=== PATIENT | female | born 1935 | race Caucasian/White ===

== ENCOUNTER 2018-05-19 13:34 | Emergency (ER) | payer MEDICARE, MEDICAID ==
[2018-05-19 14:32] LABS: BASO % 0.3 % (0-6); EOS % 4.5 % (0-6); GRAN % 68.6 % (47-80); HEMATOCRIT 35.8 % (35.0-47.0); HEMOGLOBIN 10.8 gm/dl (11.6-16.0); LYMPH % 15.9 % (16-45); MEAN CELL VOLUME 95.7 fl (81-97); MEAN CORPUSCULAR HGB CONC 30.2 g/dl (32-36); MONO % 10.7 % (0-9); PLATELET COUNT 176 K/uL (130-400); RED BLOOD COUNT 3.74 M/uL (3.80-5.40); RED CELL DISTRIBUTION WIDTH 15.3 % (11.5-14.5); WHITE BLOOD COUNT W/O DIFF 6.8 K/uL (4.2-12.2)
[2018-05-19 14:33] LABS: MEAN CORPUSCULAR HEMOGLOBIN 28.8 pg (27-33)
--- NOTE | 2018-05-19 14:33 | Emergency Department Record ---
History of Present Illness - General Chief complaint: Rash Stated complaint: RASH Time Seen by Provider: 05/19/18 14:07 Source: Patient, Family Mode of Arrival: Ambulatory Limitations: No limitations - History of Present Illness Initial comments: The patient is here due to a chronic rash. She has had a rash to her hands and arms for months and now it seems to have spread to the anterior neck and face mainly around her mouth. It is mildly itchy per the patient. The patient does live in a [place] [facility] due to being developmentally delayed. The caregiver present denies any new medicines, any recent illnesses or injuries. The patient is in her normal state of health with no complaints other than the rash. MD complaint: Rash Onset/Timin -: Month(s) - Related Data Home Medications Medication Instructions Recorded Confirmed Last Taken Aspirin Enteric-Coated [Ecotrin 81 mg PO DAILY 05/19/18 05/19/18 05/19/18 07:00 (EC)] Fluoxetine HCl 20 mg PO DAILY 05/19/18 05/19/18 05/19/18 07:00 Folic Acid 0.4 mg PO DAILY 05/19/18 05/19/18 05/19/18 07:00 Furosemide [Lasix] 40 mg PO DAILY 05/19/18 05/19/18 05/19/18 07:00 Loratadine 10 mg PO DAILY 05/19/18 05/19/18 05/19/18 07:00 Lubiprostone [Amitiza] 24 mcg PO DAILY 05/19/18 05/19/18 05/19/18 07:00 Metoprolol Tartrate 12.5 mg PO DAILY 05/19/18 05/19/18 05/19/18 07:00 Omeprazole 20 mg PO DAILY 05/19/18 05/19/18 05/19/18 07:00 Oxybutynin Chloride [Oxybutynin 5 mg PO BID 05/19/18 05/19/18 05/19/18 07:00 Chloride ER] Pioglitazone HCl [Actos] 15 mg PO DAILY 05/19/18 05/19/18 05/19/18 07:00 Polyethylene Glycol 3350 [Miralax] 17 gm PO DAILY 05/19/18 05/19/18 05/19/18 07: 00 Potassium Chloride 20 meq PO DAILY 05/19/18 05/19/18 05/19/18 07:00 Pravastatin Sodium [Pravachol] 10 mg PO DAILY 05/19/18 05/19/18 05/19/18 07:00 Quetiapine Fumarate [Quetiapine 50 mg PO DAILY 05/19/18 05/19/18 05/19/18 07:00 Fumarate ER] Quetiapine Fumarate [Seroquel] 25 mg PO ASDIR 05/19/18 05/19/18 Unknown Sennosides/Docusate Sodium 1 each PO DAILY 05/19/18 05/19/18 05/19/18 07:00 [Senokot-S Tablet] Previous Rx's Medication Instructions Recorded Triamcinolone Acetonide 80 gm TP DAILY #1 cream..g. 05/19/18 Allergies Allergy/AdvReac Type Severity Reaction Status Date / Time No Known Drug Allergies Allergy Verified 05/19/18 14:12 Travel Screening - Travel/Exposure Within Last 30 Days Have you traveled within the last 30 days?: No - Travel/Exposure Within Last Year Have you traveled outside the [place] in the last year?: No - Additonal Travel Details Have you been exposed to anyone with a communicable illness?: No - Travel Symptoms Symptom Screening: None Review of Systems Constitutional: Denies: Chills, Fever Eyes: Denies: Eye discharge ENT: Denies: Congestion Respiratory: Denies: Cough, Dyspnea Cardiovascular: Denies: Chest pain Past Medical History - SOCIAL HISTORY Smoking Status: Never smoker Alcohol Use: None Drug Use: None - RESPIRATORY Hx Respiratory Disorders: No Comment:: chronic bilateral otitis - CARDIOVASCULAR Hx Cardio Disorders: Yes Hx CHF: Yes - NEURO Hx Neuro Disorders: No - GI Hx GI Disorders: Yes Hx Reflux: Yes Comment:: chronic cysts with urinary incontinence - Hx Genitourinary Disorders: No - ENDOCRINE Hx Endocrine Disorders: Yes Hx Diabetes: Yes - PSYCH Hx Psych Problems: Yes Hx Depression: Yes Comment:: bipolar, developmental delay - mild - HEMATOLOGY/ONCOLOGY Hx Hematology/Oncology Disorders: No Family Medical History Any Significant Family History?: No Family Hx Comment (NOT TO BE USED IN PLACE OF ITEMS BELOW): unknown Physical Exam - General General Appearance: Alert, Oriented x3, Cooperative, No acute distress - Head Head exam: Atraumatic, Normocephalic, Normal inspection - Eye Eye exam: Normal appearance, PERRL - ENT Throat exam: Normal inspection. negative: Tonsillar erythema, Tonsillar exudate - Neck Neck exam: Normal inspection, Full ROM. negative: Tenderness - Respiratory Respiratory exam: Normal lung sounds bilaterally. negative: Respiratory distress - Cardiovascular Cardiovascular Exam: Regular rate, Normal rhythm, Normal heart sounds - GI/Abdominal GI/Abdominal exam: Soft, Normal bowel sounds. negative: Tenderness - Extremities Extremities exam: Full ROM, Normal capillary refill. negative: Tenderness - Neurological Neurological exam: Alert. negative: Motor sensory deficit - Skin Skin exam: Erythema (There is a diffuse blanching erythroderma to the dorsal hands and distal forearms and around the mouth and the anterior neck. It is not tender or warm and there are no signs of any infection.), Rash Course Vital Signs 05/19/18 13:56 Temperature 97.9 F Pulse Rate 72 Respiratory 16 Rate Blood Pressure 126/63 Pulse Ox 99 - Reevaluation(s) Reevaluation #1: The patient is doing well at this time with no changes or complaints. I did discuss with the caregiver the need for the patient to see her PCP and possibly obtain a referral to a Weight Training Instructor. 05/19/18 15:06 Medical Decision Making - Lab Data Result diagrams: 05/19/18 14:25 05/19/18 14:25 Disposition Disposition: Discharge Clinical Impression: Dermatitis Disposition: Home, Self-Care Condition: (2) Stable Instructions: Acute Rash (ED) Additional Instructions: Please continue your regular medicines and see use the Steroid cream as directed. Please see your family doctor next week for recheck and obtain a referral to a Weight Training Instructor if needed. Prescriptions: Triamcinolone Acetonide 80 gm TP DAILY #1 cream..g. Forms: Patient Portal Access Time of Disposition: 15:10 Quality - Quality Measures Quality Measures: N/A - Blood Pressure Screening View Details: Yes Does Patient Have Any of the Following: No Blood Pressure Classification: Pre-Hypertensive BP Reading Systolic Measurement: 126 Diastolic Measurement: 63 Screening for High Blood Pressure: < Pre-Hypertensive BP, F/U Documented > [ G8950] Pre-Hypertensive Follow-up Interventions: Referral to alternative/primary care provider.
[2018-05-19 14:48] LABS: BILIRUBIN,TOTAL 0.2 mg/dL (0.2-1.0); CREATININE 1.4 mg/dL (0.5-0.9)
[2018-05-19 14:49] LABS: TOTAL PROTEIN 7.1 g/dL (6.6-8.7)
[2018-05-19 14:53] LABS: ALB/GLOB RATIO 1.2 (1.1-1.8); ALBUMIN 3.8 g/dL (4.0-5.0); C-REACTIVE PROTEIN 0.17 mg/dL (<0.5)
== END 2018-05-19 15:26 | disposition home or self-care (01) ==
LOC: ER 13:34
DX: L30.9 Dermatitis, unspecified (principal); I50.9 Heart failure, unspecified; E11.9 Type 2 diabetes mellitus without complications; Z79.84 Long term (current) use of oral hypoglycemic drugs
CPT/HCPCS: 80053; 85025; 86140; 99283

== ENCOUNTER 2018-09-23 15:36 | Emergency (ER) | payer MEDICARE, MEDICAID ==
--- NOTE | 2018-09-23 16:19 | Emergency Department Record ---
History of Present Illness - General Chief Complaint: Laceration(s) Stated Complaint: LT CALF LAC Time Seen by Provider: 09/23/18 16:00 Source: Patient, RN notes reviewed Mode of Arrival: Ambulatory - History of Present Illness Initial Commments: patient cut her leg using an electric razor and bleeding would not stop with pressure. pateint lives in [facility] Onset/Timin -: Days(s) Place: Home Associated Symptoms: None - Related Data Previous Rx's Medication Instructions Recorded Triamcinolone Acetonide 80 gm TP DAILY #1 cream..g. 05/19/18 Allergies Allergy/AdvReac Type Severity Reaction Status Date / Time No Known Drug Allergies Allergy Verified 05/19/18 14:12 Travel Screening - Travel/Exposure Within Last 30 Days Have you traveled within the last 30 days?: No Review of Systems Reviewed: No additional complaints except as noted below Constitutional: Reports: As per HPI. Denies: Chills, Fever, Malaise, Night sweats, Weakness, Weight change Eyes: Reports: As per HPI. Denies: Eye discharge, Eye pain, Photophobia, Vision change ENT: Reports: As per HPI. Denies: Congestion, Dental pain, Ear pain, Epistaxis , Hearing loss, Throat pain Respiratory: Reports: As per HPI. Denies: Cough, Dyspnea, Hemoptysis, Stridor, Wheezes Cardiovascular: Reports: As per HPI. Denies: Arrhythmia, Chest pain, Dyspnea on exertion, Edema, Murmurs, Orthopnea, Palpitations, Paroxysmal nocturnal dyspnea, Rheumatic Fever, Syncope Endocrine: Reports: As per HPI. Denies: Fatigue, Heat or cold intolerance, Polydipsia, Polyuria Gastrointestinal: Reports: As per HPI. Denies: Abdominal pain, Constipation, Diarrhea, Hematemesis, Hematochezia, Melena, Nausea, Vomiting Genitourinary: Reports: As per HPI. Denies: Abnormal menses, Discharge, Dyspareunia, Dysuria, Frequency, Hematuria, Incontinence, Retention, Urgency Musculoskeletal: Reports: As per HPI. Denies: Arthralgia, Back pain, Gout, Joint swelling, Myalgia, Neck pain Skin: Reports: As per HPI. Denies: Bruising, Change in color, Change in hair/ nails, Lesions, Pruritus, Rash Neurological: Reports: As per HPI. Denies: Abnormal gait, Confusion, Headache, Numbness, Paresthesias, Seizure, Tingling, Tremors, Vertigo, Weakness Psychiatric: Reports: As per HPI. Denies: Anxiety, Auditory hallucinations, Depression, Homicidal thoughts, Suicidal thoughts, Visual hallucinations Hematological/Lymphatic: Reports: As per HPI. Denies: Anemia, Blood Clots, Easy bleeding, Easy bruising, Swollen glands Past Medical History - SOCIAL HISTORY Smoking Status: Never smoker - RESPIRATORY Hx Respiratory Disorders: No Comment:: chronic bilateral otitis - CARDIOVASCULAR Hx Cardio Disorders: Yes Hx CHF: Yes - NEURO Hx Neuro Disorders: No - GI Hx GI Disorders: Yes Hx Reflux: Yes Comment:: chronic cysts with urinary incontinence - Hx Genitourinary Disorders: No - ENDOCRINE Hx Endocrine Disorders: Yes Hx Diabetes: Yes - PSYCH Hx Psych Problems: Yes Hx Depression: Yes Comment:: bipolar, developmental delay - mild - HEMATOLOGY/ONCOLOGY Hx Hematology/Oncology Disorders: No Family Medical History Any Significant Family History?: No Family Hx Comment (NOT TO BE USED IN PLACE OF ITEMS BELOW): unknown Physical Exam - General General Appearance: Alert, Oriented x3, Cooperative, No acute distress - Head Head exam: Normal inspection - Eye Eye exam: Normal appearance, PERRL Pupils: Normal accommodation - ENT ENT exam: Normal exam, Mucous membranes moist, Normal external ear exam, Normal orophraynx, TM's normal bilaterally Ear exam: Normal external inspection. negative: External canal tenderness Nasal Exam: Normal inspection. negative: Discharge, Sinus tenderness Mouth exam: Normal external inspection, Tongue normal Teeth exam: Normal inspection. negative: Dental caries Throat exam: Normal inspection. negative: Tonsillar erythema, Tonsillar exudate - Neck Neck exam: Normal inspection, Full ROM. negative: Tenderness - Respiratory Respiratory exam: Normal lung sounds bilaterally. negative: Respiratory distress - Cardiovascular Cardiovascular Exam: Regular rate, Normal rhythm, Normal heart sounds - GI/Abdominal GI/Abdominal exam: Soft, Normal bowel sounds. negative: Tenderness - Rectal Rectal exam: Deferred - exam: Deferred - Extremities Extremities exam: Normal inspection, Full ROM, Normal capillary refill, Other ( left lower leg laceration small puncture type wound). negative: Tenderness - Back Back exam: Reports: Normal inspection, Full ROM. Denies: Muscle spasm, Rash noted, Tenderness - Neurological Neurological exam: Alert, Normal gait, Oriented X3, Reflexes normal - Psychiatric Psychiatric exam: Normal affect, Normal mood - Skin Skin exam: Dry, Intact, Normal color, Warm Course Vital Signs 09/23/18 15:39 Temperature 98.2 F Pulse Rate 84 Respiratory 20 Rate Blood Pressure 163/80 Pulse Ox 97 - Reevaluation(s) Reevaluation #1: silver nitrate used to stop the bleeding and a dressing applied 09/23/18 16:17 Disposition Clinical Impression: Puncture wound Disposition: Home, Self-Care Condition: (1) Good Instructions: Laceration (ED) Additional Instructions: stop aspirin till seen by family DrAlfredo Time of Disposition: 16:18 Quality - Quality Measures Quality Measures: N/A - Blood Pressure Screening Does Patient Have Any of the Following: No Blood Pressure Classification: Pre-Hypertensive BP Reading Systolic Measurement: 163 Diastolic Measurement: 80 Screening for High Blood Pressure: < Pre-Hypertensive BP, F/U Documented > [ G8950] Pre-Hypertensive Follow-up Interventions: Referral to alternative/primary care provider.
== END 2018-09-23 16:27 | disposition home or self-care (01) ==
LOC: ER 15:36
DX: S81.832A Puncture wound without foreign body, left lower leg, initial encounter (principal); Y28.8XXA Contact with other sharp object, undetermined intent, initial encounter; Y92.009 Unspecified place in unspecified non-institutional (private) residence as the place of occurrence of the external cause; I50.9 Heart failure, unspecified; E11.9 Type 2 diabetes mellitus without complications
CPT/HCPCS: 99282